=== PATIENT | female | born 1940 | race Asian ===

== ENCOUNTER 2017-05-28 20:51 | Emergency (ER) | payer OTHER ==
[~2017-05-28 20:51] MED LIST: ASPIR 8181 MG PO; ASPIRIN PO; CARAFATE1 GM PO; CLINDAMYCIN HC300 MG PO; COLACE100 MG PO; COZ50 PO; LEVAQUIN250 MG PO; LOP50 PO; MEV20 PO; NOR10 PO; NORCO1 TA2 PO; PRI20 PO; PRILOSEC40 MG PO; SOTALOL80 MG PO; XARELTO; XARELTO10 M1; XARELTO10 M1 PO
[2017-05-28 22:10] LABS: BASOPHIL % 0.6 % (0-2); PLATELET COUNT 317 x10^3mcL (130-400); RED CELL DISTRIBUTION WIDTH 12.6 % (11.5-14.5)
[2017-05-28 22:23] LABS: CALCIUM 8.6 mg/dL (8.5-10.1); CARBON DIOXIDE 27.4 mmol/L (21-32); CHLORIDE SERUM 107 mmol/L (98-107); CREATININE SERUM 0.7 mg/dL (0.6-1.0); GLUCOSE SERUM 112 mg/dL (74-106); POTASSIUM SERUM 4.3 mmol/L (3.5-5.1); SODIUM SERUM 138 mmol/L (136-145)
[2017-05-28 22:27] LABS: ALBUMIN 3.6 g/dL (3.4-5.0); ALKALINE PHOSPHATASE 81 U/L (46-116); ALT/SGPT 24 U/L (14-59); AST/SGOT 18 U/L (15-37); BILIRUBIN TOTAL 0.4 mg/dL (0.20-1.00); LIPASE 256 IU/L (73-393); MAGNESIUM 2.3 mg/dL (1.8-2.4); TOTAL PROTEIN, SERUM 6.9 g/dL (6.4-8.2)
[2017-05-28 23:20] VITALS: BP 118/68
== END 2017-05-28 23:20 | disposition home or self-care (01) ==
LOC: ED 20:51
PROVIDERS: Emergency Medicine
DX: R05 Cough (principal); R07.89 Other chest pain; I10 Essential (primary) hypertension; I48.91 Unspecified atrial fibrillation; Z88.0 Allergy status to penicillin; Z79.899 Other long term (current) drug therapy; Z79.01 Long term (current) use of anticoagulants
CPT/HCPCS: 36415; 83880; Q0092

== ENCOUNTER 2017-11-23 19:15 | Inpatient (IN) | payer OTHER ==
[~2017-11-23] VITALS: Ht 152.4 cm; Wt 59.4 kg
[2017-11-23] MEDS ORDERED: SOTALOL HCL80 MG PO (19:32)
[2017-11-23] MEDS ORDERED: OMEPRAZOLE40 M1 PO (19:32)
[2017-11-23] MEDS ORDERED: LOSARTAN POTASS50 M1 PO (19:32)
[2017-11-23] MEDS ORDERED: XARELTO10 M1 PO (19:32)
[2017-11-23] MEDS ORDERED: CARAFATE1 GM PO (19:32)
[2017-11-23] MEDS ORDERED: NOR10 PO (19:33)
[2017-11-23 20:23] LABS: BASOPHIL % 0.6 % (0-2); PLATELET COUNT 295 x10^3mcL (130-400); RED CELL DISTRIBUTION WIDTH 12.1 % (11.5-14.5)
[2017-11-23 20:29] LABS: CALCIUM 8.9 mg/dL (8.5-10.1); CARBON DIOXIDE 25.6 mmol/L (21-32); CHLORIDE SERUM 103 mmol/L (98-107); CREATININE SERUM 0.7 mg/dL (0.6-1.0); GLUCOSE SERUM 175 mg/dL (74-106); POTASSIUM SERUM 3.2 mmol/L (3.5-5.1); SODIUM SERUM 138 mmol/L (136-145)
[2017-11-23 20:33] LABS: ALBUMIN 3.5 g/dL (3.4-5.0); ALKALINE PHOSPHATASE 90 U/L (46-116); ALT/SGPT 23 U/L (14-59); AST/SGOT 16 U/L (15-37); BILIRUBIN TOTAL 0.35 mg/dL (0.20-1.00); TOTAL PROTEIN, SERUM 7.3 g/dL (6.4-8.2)
[2017-11-23 22:08] LABS: PHOSPHOROUS 3.3 mg/dL (2.5-4.9)
[2017-11-23 22:09] LABS: CHOLESTEROL/HDL RATIO 5.3
[2017-11-23 22:15] LABS: T3 TOTAL 0.91 ng/mL
[2017-11-23 22:16] LABS: FREE T4 1.01 ng/dL (0.76-1.46); FREE THYROXINE INDEX 2.7 ug/dL (1.4-4.5); T4(THYROXINE) 7.2 ug/dL (4.7-13.3)
[2017-11-23 23:01] VITALS: BP 107/62
[2017-11-23] MEDS ORDERED: XARELTO20 M1 PO (23:32)
[2017-11-24 02:51] LABS: UA SPECIFIC GRAVITY 1.015 (1.005-1.035); microscopic required? YES; urine erythrocyte TRACE (NEGATIVE)
[2017-11-24 03:00] LABS: AMPHETAMINE QUAL UR NONE DETECTED (NEG <=1000)
[2017-11-24 05:28] VITALS: BP 104/62
[2017-11-24 08:52] VITALS: BP 126/68
[2017-11-24 11:01] LABS: BASOPHIL % 0.4 % (0-2); PLATELET COUNT 262 x10^3mcL (130-400); RED CELL DISTRIBUTION WIDTH 12.7 % (11.5-14.5)
[2017-11-24 11:13] VITALS: Ht 152.4 cm; Wt 59.4 kg
[2017-11-24 11:40] LABS: CALCIUM 8.4 mg/dL (8.5-10.1); CARBON DIOXIDE 21.4 mmol/L (21-32); CHLORIDE SERUM 109 mmol/L (98-107); CREATININE SERUM 0.6 mg/dL (0.6-1.0); GLUCOSE SERUM 91 mg/dL (74-106); MAGNESIUM 2.2 mg/dL (1.8-2.4); PHOSPHOROUS 3.6 mg/dL (2.5-4.9); POTASSIUM SERUM 4.2 mmol/L (3.5-5.1); SODIUM SERUM 141 mmol/L (136-145)
[2017-11-24 13:02] VITALS: BP 102/56
[2017-11-24 16:54] VITALS: BP 120/57
[2017-11-24 20:50] VITALS: BP 103/53
[2017-11-25 04:59] VITALS: BP 118/71
[2017-11-25 06:13] LABS: BASOPHIL % 0.4 % (0-2); PLATELET COUNT 247 x10^3mcL (130-400); RED CELL DISTRIBUTION WIDTH 12.6 % (11.5-14.5)
[2017-11-25 06:41] LABS: CARBON DIOXIDE 22.7 mmol/L (21-32); CHLORIDE SERUM 110 mmol/L (98-107); CREATININE SERUM 0.6 mg/dL (0.6-1.0); GLUCOSE SERUM 96 mg/dL (74-106); POTASSIUM SERUM 3.8 mmol/L (3.5-5.1); SODIUM SERUM 141 mmol/L (136-145)
[2017-11-25 09:16] VITALS: BP 95/49
[2017-11-25 13:02] VITALS: BP 113/62
[2017-11-25] MEDS ORDERED: LOSARTAN POTASS25 M1 PO (16:58)
[2017-11-25 17:05] VITALS: BP 113/62
[2017-11-25] MEDS ORDERED: IBUPROFEN400 MG PO (17:05)
[2017-11-25 17:10] VITALS: BP 118/66
== END 2017-11-25 17:50 | disposition home or self-care (01) | DRG 205 ==
LOC: ED 19:15 → DU 21:08
PROVIDERS: Emergency Medicine; Family Medicine Sports Medicine
DX: M94.0 Chondrocostal junction syndrome [Tietze] (principal); N17.0 Acute kidney failure with tubular necrosis; I48.0 Paroxysmal atrial fibrillation; I10 Essential (primary) hypertension; R73.03 Prediabetes; I73.9 Peripheral vascular disease, unspecified; K21.9 Gastro-esophageal reflux disease without esophagitis; E78.1 Pure hyperglyceridemia; E03.9 Hypothyroidism, unspecified; D64.9 Anemia, unspecified; Z68.28 Body mass index [BMI] 28.0-28.9, adult; Z79.01 Long term (current) use of anticoagulants
CPT/HCPCS: 83880; 84439; J7030; Q0092

== ENCOUNTER 2018-12-28 09:46 | Emergency (ER) | payer OTHER ==
[~2018-12-28] VITALS: Ht 152.4 cm; Wt 63.5 kg
[~2018-12-28 09:46] MED LIST changes: +IBUPROFEN400 MG PO; +LOSARTAN POTASS25 M1 PO; +LOSARTAN POTASS50 M1 PO; +OMEPRAZOLE40 M1 PO; +SOTALOL HCL80 MG PO; +XARELTO20 M1 PO
[2018-12-28 09:54] VITALS: Ht 152.4 cm; Wt 63.5 kg
[2018-12-28 10:57] LABS: CALCIUM 8.5 mg/dL (8.5-10.1); CARBON DIOXIDE 27.8 mmol/L (21-32); CHLORIDE SERUM 109 mmol/L (98-107); CREATININE SERUM 0.7 mg/dL (0.6-1.0); GLUCOSE SERUM 112 mg/dL (74-106); POTASSIUM SERUM 4.3 mmol/L (3.5-5.1); SODIUM SERUM 145 mmol/L (136-145)
[2018-12-28 11:02] LABS: BASOPHIL % 0.4 % (0-2); PLATELET COUNT 328 x10^3mcL (130-400); RED CELL DISTRIBUTION WIDTH 12.2 % (11.5-14.5)
[2018-12-28 11:08] LABS: ALKALINE PHOSPHATASE 62 U/L (46-116); AMYLASE 44 U/L (25-115); AST/SGOT 13 U/L (15-37); BILIRUBIN TOTAL 0.68 mg/dL (0.20-1.00); CHOLESTEROL 154 mg/dL (<200); LIPASE 143 IU/L (73-393); T4(THYROXINE) 8.1 ug/dL (4.7-13.3); TOTAL PROTEIN, SERUM 6.9 g/dL (6.4-8.2)
[2018-12-28 11:20] LABS: ALBUMIN 3.3 g/dL (3.4-5.0); ALT/SGPT 22 U/L (14-59); HDL CHOLESTEROL 32 mg/dL (40-60)
[2018-12-28 12:33] LABS: microscopic required? YES; urine erythrocyte TRACE (NEGATIVE)
[2018-12-28 12:42] LABS: AMPHETAMINE QUAL UR NONE DETECTED (See below)
[2018-12-28 15:00] VITALS: BP 106/63
== END 2018-12-28 15:00 | disposition home or self-care (01) ==
LOC: ED 09:46
PROVIDERS: Emergency Medicine
DX: I48.91 Unspecified atrial fibrillation (principal); F41.9 Anxiety disorder, unspecified; I10 Essential (primary) hypertension
CPT/HCPCS: 36415; 83880; Q0092

== ENCOUNTER 2019-07-16 09:57 | Emergency (ER) | payer OTHER ==
[~2019-07-16] VITALS: Ht 152.4 cm; Wt 63.5 kg
[2019-07-16 10:40] LABS: BASOPHIL % 0.5 % (0-2); PLATELET COUNT 331 x10^3mcL (130-400); RED CELL DISTRIBUTION WIDTH 13.3 % (11.5-14.5)
[2019-07-16 10:45] LABS: CALCIUM 8.8 mg/dL (8.5-10.1); CHLORIDE SERUM 106 mmol/L (98-107); CREATININE SERUM 0.8 mg/dL (0.6-1.0); GLUCOSE SERUM 131 mg/dL (74-106); POTASSIUM SERUM 4.4 mmol/L (3.5-5.1); SODIUM SERUM 142 mmol/L (136-145)
[2019-07-16 10:50] LABS: ALBUMIN 3.6 g/dL (3.4-5.0); ALKALINE PHOSPHATASE 84 U/L (46-116); ALT/SGPT 63 U/L (14-59); AST/SGOT 56 U/L (15-37); BILIRUBIN TOTAL 0.51 mg/dL (0.20-1.00); TOTAL PROTEIN, SERUM 7.3 g/dL (6.4-8.2)
[2019-07-16 11:19] VITALS: BP 153/90
== END 2019-07-16 11:19 | disposition short-term general hospital (02) ==
LOC: ED 09:57
DX: I21.3 ST elevation (STEMI) myocardial infarction of unspecified site (principal); I10 Essential (primary) hypertension; I49.9 Cardiac arrhythmia, unspecified; Z88.1 Allergy status to other antibiotic agents
CPT/HCPCS: 36415; Q0092